=== PATIENT | male | born 1955 | race Caucasian/White ===

== ENCOUNTER 2021-02-04 16:57 | Emergency (ER) | payer BC ==
[2021-02-04] MEDS ORDERED: Methocarbamol 500 MG Tab PO ONE (18:27)
[2021-02-04] MEDS ORDERED: Ketorolac 30 MG/ML SDV IM ONE (18:27)
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
--- NOTE | 2021-02-04 20:02 | CRLCT ---
For Patients: As a result of the Century Cures Act, medical imaging exams and procedure reports are released immediately into your electronic medical record. You may view this report before your referring provider. If you have questions, please contact your health care provider. INDICATION: severe low back pain with right sciatica CT LUMBAR SPINE WITHOUT CONTRAST TECHNIQUE: Multidetector axial CT imaging was performed through the lumbar spine, without contrast. Sagittal and coronal reconstructions were generated. FINDINGS: No acute fractures are identified. No destructive osseous lesions are seen. Osseous alignment is within normal limits and no subluxation is seen. Paravertebral soft tissues are unremarkable. Mild degenerative endplate spurring is noted anteriorly at several upper and mid lumbar disc spaces. There is diffuse mild lumbar degenerative disc disease, degenerative thickening of the ligamentum flavum, and multilevel mild lumbar facet joint DJD changes. These degenerative changes result in moderate spinal stenosis at L3-4 and L4-5. There are degenerative changes of the sacroiliac joints, left greater than right. IMPRESSION: 1. No fracture, subluxation, or other acute finding identified. 2. Multilevel lumbar spondylosis as described above, with resultant moderate spinal stenosis at L3-4 and L4-5. EDUAR IRAHETA MD [facility] Dictated by Darwin Iraheta MD @ 02/04/2021 7:57:49 PM Please note that all CT scans at this facility use dose modulation, iterative reconstruction, and/or weight-based dosing when appropriate to reduce radiation dose to as low as reasonably achievable. Dictated by: Darwin Iraheta MD @ 02/04/2021 20:01:43 (Electronically Signed)
[2021-02-04] MEDS ORDERED: HYDROmorphone 1 MG/ML Syringe IM ONE (20:57)
== END 2021-02-04 21:43 | disposition home or self-care (01) ==
LOC: JP.ED 16:57
DX: M48.061 Spinal stenosis, lumbar region without neurogenic claudication (principal); M54.16 Radiculopathy, lumbar region; M46.1 Sacroiliitis, not elsewhere classified; Z79.82 Long term (current) use of aspirin; Z79.899 Other long term (current) drug therapy
CPT/HCPCS: 72131; 96372; 99283; A9270; J1170; J1885